=== PATIENT | male | born 1990 | race Two or more races ===

== ENCOUNTER 2022-11-25 15:13 | Emergency (ER) | payer OTHER ==
[~2022-11-25] VITALS: Ht 182.9 cm; Wt 104.3 kg
--- NOTE | 2022-11-25 15:33 | NUR ---
C/O RIGHT SHOULDER PAIN 1 HOUR AGO. PT STATES "I THINK IT POPPED OUT AGAIN"
--- NOTE | 2022-11-25 15:33 | NUR ---
DR ROA AT BEDSIDE FOR EVAL. AWAITING FOR ORDERS.
[2022-11-25] MEDS ORDERED: KETOROLAC TROMETHAMINE 15 MG/ML VIAL ONE (15:39)
[2022-11-25] MEDS ORDERED: HYDROCODONE/APAP 5/325MG TABLET ONE (15:40)
--- NOTE | 2022-11-25 15:50 | NUR ---
PT REFUSED MEDICATIONS, DR ROA NOTIFIED
[2022-11-25] MEDS ORDERED: HYDROCODONE/APAP 5/325MG TABLET PO ONE (16:00)
[2022-11-25] MEDS ORDERED: KETOROLAC TROMETHAMINE INJ 60 MG/2 ML VIAL IM ONE (16:00)
[2022-11-25 16:54] VITALS: BP 125/70
[2022-11-25] MEDS ORDERED: NAPR-1009 PO (17:15)
== END 2022-11-25 17:27 | disposition home or self-care (01) ==
LOC: ER 15:18
DX: S49.81XA Other specified injuries of right shoulder and upper arm, initial encounter (principal); Z60.2 Problems related to living alone; Z79.899 Other long term (current) drug therapy; X58.XXXA Exposure to other specified factors, initial encounter; Y93.89 Activity, other specified; Y92.89 Other specified places as the place of occurrence of the external cause; Y99.8 Other external cause status
CPT/HCPCS: 73030-TC; J1885